=== PATIENT | female | born 1965 ===

== ENCOUNTER 2024-10-31 16:09 | Outpatient (AMB) | payer BC, SELFPAY | END 2024-10-31 16:10 | disposition home or self-care (01) | LOC: HO.HMGAL 16:09 | PROVIDERS: Visit Provider Registered Nurse Emergency | DX: J30.89 Other allergic rhinitis (principal) | CPT/HCPCS: 95117; 95165 ==

== ENCOUNTER 2024-11-23 15:18 | Outpatient (AMB) | payer BC, SELFPAY | END 2024-11-23 15:21 | disposition home or self-care (01) | LOC: HO.HMGAL 15:18 | PROVIDERS: PCP Nurse Practitioner Family; Visit Provider Registered Nurse Emergency | DX: J30.89 Other allergic rhinitis (principal) | CPT/HCPCS: 95117; 95165 ==

== ENCOUNTER 2024-12-19 15:46 | Outpatient (AMB) | payer BC, SELFPAY | END 2024-12-19 15:51 | disposition home or self-care (01) | LOC: HO.HMGAL 15:46 | PROVIDERS: PCP Nurse Practitioner Family; Visit Provider Registered Nurse Emergency | DX: J30.89 Other allergic rhinitis (principal) | CPT/HCPCS: 95117; 95165 ==

== ENCOUNTER 2025-01-16 15:43 | Outpatient (AMB) | payer BC, SELFPAY | END 2025-01-16 15:44 | disposition home or self-care (01) | LOC: HO.HMGAL 15:43 | PROVIDERS: PCP Nurse Practitioner Family; Visit Provider Registered Nurse Emergency | DX: J30.89 Other allergic rhinitis (principal) | CPT/HCPCS: 95117; 95165 ==